=== PATIENT | male | born 1950 | race Two or more races ===

== ENCOUNTER → 2018-12-12 | Outpatient (CLI) | payer MEDICARE, OTHER ==
--- NOTE | 2018-12-12 10:49 | US ---
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 GLAND SIZE: Right Lobe: 4.6 x 1.4 x 1.4 cm Overall Parenchyma: heterogenous Left Lobe: 4.2 x 2.0 x 1.5 cm Overall Parenchyma: heterogeneous Isthmus Thickness: 0.6 cm NODULES RIGHT: # of nodules measured on right: 0 LEFT: # of nodules measured on left: 1 1. 0.7 X 0.4 x 0.5 cm isoechoic solid nodule at the lower pole with poorly defined margins; . This nodule is wider than tall and shows no intranodular vascularity. Prior size: 0.9 x 0.5 x 0.7 cm ISTHMUS: # of nodules measured in the isthmus: 0 Bilateral neck scanned, no evidence of lymphadenopathy. Left lobe nodule very vague. IMPRESSION: Stable glandular heterogeneity and vague nodularity.
[2018-12-12 11:37] LABS: T4, Free (Free Thyroxine) 0.96 ng/dL (0.78-2.19)
== END ==
LOC: RADUSWWP 10:15
PROVIDERS: ATTEND Internal Medicine Endocrinology, Diabetes & Metabolism
DX: E05.20 Thyrotoxicosis with toxic multinodular goiter without thyrotoxic crisis or storm (principal)
CPT/HCPCS: 76536; 84439; 84443; 84480

== ENCOUNTER → 2022-06-22 | Outpatient (CLI) | payer MEDICARE ==
[2022-06-22 15:08] LABS: African American GFR (CKD) >90 (>60 ml/min/1.73 sqM); Blood Urea Nitrogen 19 mg/dL (9-20); Non-African American GFR(CKD) >90 (>60 ml/min/1.73 sqM)
--- NOTE | 2022-06-22 16:42 | CT ---
EXAMINATION TYPE: CT abdomen w con DATE OF EXAM: 06/22/2022 COMPARISON: INDICATION: Elevation of levels of liver transaminas, hx of alcohol use DLP: 1525.5 mGycm, Automated exposure control for dose reduction was used. CONTRAST: 100cc mL of Isovue 300. Study performed with Oral Contrast TECHNIQUE: Axial images were obtained from above the diaphragm to the pubic rami in the axial plane a t 5 mm thick sections. Reconstructed images are reviewed on the computer in the coronal plane. FINDINGS: Limited CT sections are obtained the lung bases. There is a triangular area of increased density wit hin the posterior medial left lung base measuring 3.0 cm. Correlate for atelectasis. Small pneumonia could be considered. Some scattered atelectatic type changes are at the periphery of the lung bases n ote is made of coronary artery calcification. CT ABDOMEN: Liver: Normal Spleen: Normal Pancreas: Normal Adrenal glands: The adrenal glands are normal. Gallbladder: Normal Kidneys: No masses are evident. No hydronephrosis is present. There is a 5.7 cm cyst at the anterio r inferior pole right kidney. Small cortical renal cyst measuringr 1.1 cm cyst in the mid anterior la teral left kidney. Delayed images were obtained through the kidneys, which remain unremarkable. Aorta: Vascular calcification is within the aorta. Inferior vena cava: Normal. Loops of bowel within the abdomen and upper pelvis are normal. Some diverticular changes are within t he sigmoid colon. There are loops of bowel lacking oral contrast limiting some bowel evaluation. Appendix: Normal as visualized. IMPRESSIONS: 1. Cortical renal cysts. 2. Correlate for posterior medial left lower lobe atelectasis or small pneumonia. 3. No discrete abnormality within the liver.
== END | disposition home or self-care (01) ==
LOC: RADCTMAIN 14:24
PROVIDERS: ATTEND Family Medicine
DX: Z01.812 Encounter for preprocedural laboratory examination (principal); N28.1 Cyst of kidney, acquired; F10.188 Alcohol abuse with other alcohol-induced disorder
CPT/HCPCS: 82565; 84520; 74160; 36415; Q9967 ×2

== ENCOUNTER → 2022-06-22 | Outpatient (CLI) | payer MEDICARE ==
--- NOTE | 2022-06-22 18:27 | CA ---
Transthoracic Echo Report Name: Gisella Lara Age: 71 Gender: M : 1950 Exam Date: 06/22/2022 15:23 Exam Location: [facility] Ht (in): 69 Wt (lb): 226 Ordering Physician: Rohit Goff DO Attending/Referring Phys: Rohit Goff DO Radiological Technician Ivy Sims RDCS Procedure CPT: Indications: R01.1 CARDIAC MURMUR, UNSPECIFIED Cardiac Hx: Technical Quality: Good Contrast 1: Total Dose (mL): Contrast 2: N/A Total Dose (mL): MEASUREMENTS (Male / Female) Normal Values 2D ECHO LV Diastolic Diameter PLAX 4.8 cm 4.2 - 5.9 / 3.9 - 5.3 cm LV Systolic Diameter PLAX 3.6 cm IVS Diastolic Thickness 1.4 cm 0.6 - 1.0 / 0.6 - 0.9 cm LVPW Diastolic Thickness 1.5 cm 0.6 - 1.0 / 0.6 - 0.9 cm LV Relative Wall Thickness 0.6 RV Internal Dim ED PLAX 3.2 cm LA Systolic Diameter LX 4.5 cm 3.0 - 4.0 / 2.7 - 3.8 cm LA Volume 88.7 cm??? 18 - 58 / 22 - 52 cm??? M-MODE Aortic Root Diameter MM 3.1 cm LA Systolic Diameter MM 4.8 cm LA Ao Ratio MM 1.6 MV E Point Septal Separation 0.4 cm AV Cusp Separation MM 1.5 cm DOPPLER AV Peak Velocity 245.3 cm/s AV Peak Gradient 26.0 mmHg AV Mean Velocity 172.4 cm/s AV Mean Gradient 13.8 mmHg AV Velocity Time Integral 39.4 cm LVOT Peak Velocity 101.8 cm/s LVOT Peak Gradient 4.1 mmHg MV E' Velocity 7.5 cm/s FINDINGS Left Ventricle Mildly increased septal wall thickness. Left ventricular ejection fraction is estimated at %. 40-45 Right Ventricle Normal right ventricular size and function. Right Atrium Normal right atrial size. Left Atrium Mildly increased left atrial diameter. Severely increased left atrial volume. Mildly increased left atrial area. Mitral Valve Mitral annular calcification.mitral valve thickened. Moderate mitral regurgitation. Aortic Valve Mild aortic stenosis with a peak gradient of 27 mmHg and a mean gradient of 14 mmHg. Tricuspid Valve Structurally normal tricuspid valve. Pulmonic Valve Structurally normal pulmonic valve. Pericardium Normal pericardium. Aorta Normal size aortic root and proximal ascending aorta. CONCLUSIONS Impaired LV function was EF between 40-45% Moderate mitral regurgitation Mild aortic stenosis Previewed by: Dr. Price Carrasco MD (Electronically Signed) Final Date: 22 June 2022 18:26
== END | disposition home or self-care (01) ==
LOC: RADECHMAIN 14:56
PROVIDERS: ATTEND Family Medicine
DX: I34.0 Nonrheumatic mitral (valve) insufficiency (principal); I35.0 Nonrheumatic aortic (valve) stenosis
CPT/HCPCS: 93306

== ENCOUNTER → 2024-06-09 | Outpatient (CLI) | payer MEDICARE ==
--- NOTE | 2024-06-09 11:51 | XR ---
EXAMINATION TYPE: XR chest 2V DATE OF EXAM: 06/09/2024 11:47 AM COMPARISON: None TECHNIQUE: XR chest 2V Frontal and lateral views of the chest. CLINICAL INDICATION:Male, 73 years old with history of R053 CHRONIC COUGH; FINDINGS: Lungs/Pleura: There is no evidence of pleural effusion, focal consolidation, or pneumothorax. Pulmonary vascularity: Unremarkable. Heart/mediastinum: Cardiomediastinal silhouette is unremarkable. Musculoskeletal: No acute osseous pathology. IMPRESSION: No acute cardiopulmonary disease/process. [facility], , 06/09/2024 11:49 AM
== END | disposition home or self-care (01) ==
LOC: RADXRYALE 11:34
PROVIDERS: ATTEND Family Medicine
DX: R05.3 Chronic cough (principal)
CPT/HCPCS: 71046

== ENCOUNTER → 2024-12-08 | Outpatient (CLI) | payer MEDICARE ==
[2024-12-08 16:59] LABS: Anti-Smith Ab Interp Negative (Negative)
== END | disposition home or self-care (01) ==
LOC: LABWHC1 10:52
PROVIDERS: ATTEND Internal Medicine Critical Care Medicine
DX: J84.112 Idiopathic pulmonary fibrosis (principal)
CPT/HCPCS: 36415; 85652; 86038; 86039; 86140; 86235